=== PATIENT | female | born 1995 | race Caucasian/White ===

== ENCOUNTER 2022-02-05 10:17 | Emergency (ER) | payer OTHER ==
[~2022-02-05] VITALS: Ht 160 cm; Wt 56.7 kg
[2022-02-05] MEDS ORDERED: GADOTERATE MEGLUMINE 10 MMOL/20 ML VIAL IV ONE (10:18)
[2022-02-05] MEDS ORDERED: SERT50TA PO (10:36)
[2022-02-05] MEDS ORDERED: IV NORMAL SALINE 1000 ML BAG IV ONE (10:45)
[2022-02-05 10:57] LABS: *BILIRUBIN,URIN NEGATIVE (NEGATIVE); *BLOOD, URINE NEGATIVE (NEGATIVE); *COLOR,URINE YELLOW (YELLOW); *KETONES,URINE 3+ (NEGATIVE); *UROBILINOGEN,URINE 0.2 E.U./dl (NORMAL); LEUKOCYTE ESTERASE ,URINE NEGATIVE (NEGATIVE); NITRITE, URINE NEGATIVE (NEGATIVE); PH,URINE 7.5 (5.0-8.0); UGLUCOSE NEGATIVE (NEGATIVE)
[2022-02-05 11:00] LABS: HEMATOCRIT 37.9 % (31.2-41.9); MEAN CORPUSCULAR HEMOGLOBIN 30.2 uug (24.7-32.8); MEAN CORPUSCULAR VOLUME 87.7 fL (75.5-95.3); PLATELET COUNT (AUTO) 189 K/uL (179-408)
[2022-02-05] MEDS ORDERED: MORPHINE SULFATE 4 MG/1 ML DISP.SYRIN IV ONE (11:00)
[2022-02-05] MEDS ORDERED: ONDANSETRON 4 MG/2 ML VIAL IV ONE (11:00)
[2022-02-05 11:01] LABS: *CLARITY,URINE SLIGHTLY CLOUDY (CLEAR)
[2022-02-05 11:02] LABS: *URINE HCG, QUAL NEGATIVE (NEGATIVE)
[2022-02-05] MEDS ORDERED: ONDANSETRON 4 MG/2 ML VIAL ONE ×2 (11:05→11:08)
[2022-02-05] MEDS ORDERED: MORPHINE SULFATE 4 MG/1 ML DISP.SYRIN ONE (11:08)
[2022-02-05 11:09] LABS: CREATININE 0.9 mg/dL (0.6-1.3); POTASSIUM 3.8 mmol/L (3.5-5.1)
[2022-02-05] MEDS ORDERED: MORPHINE SULFATE 2 MG/1 ML DISP.SYRIN ONE (11:09)
[2022-02-05 11:15] LABS: TOTAL PROTEIN, SERUM 7.2 g/dL (6.4-8.2)
[2022-02-05 11:33] LABS: RBC,URINE 0-3 /HPF (0-3)
[2022-02-05 11:34] LABS: BACTERIA,URINE FEW /HPF (NONE SEEN); SQUAMOUS EPITHELIAL CELL,UR MODERATE /HPF (NONE SEEN); WBC,URINE 0-3 /HPF (0-3)
[2022-02-05] MEDS ORDERED: SWABABLE VALVE TRANSFER SET EA MC ONE (11:51)
[2022-02-05] MEDS ORDERED: IOHEXOL 300MG/ML 100 ML INFUS..BTL ONE (11:51)
[2022-02-05] MEDS ORDERED: IV NORMAL SALINE 250 ML IV ONE (11:51)
--- NOTE | 2022-02-05 14:16 | NUR ---
TEXT DR. MARINO FOR MRI APPROVAL.
--- NOTE | 2022-02-05 14:20 | NUR ---
Spoke with Joaquin at [facility]iology department regarding MRI. Stated he is waiting for approval and will call back with further information.
--- NOTE | 2022-02-05 14:30 | NUR ---
Received telephone call from Joaquin who stated pt has been approved for MRI. Called [facility] for transport, eta [id number].
--- NOTE | 2022-02-05 15:02 | NUR ---
Ambulance here to take pt to [facility] for MRI.
--- NOTE | 2022-02-05 16:34 | NUR ---
Pt back from [facility] noted.
--- NOTE | 2022-02-05 17:44 | NUR ---
Removed IV intact, site okay, bandaged. Gave pt d/c instructions, pt verbalized understanding.
[2022-02-05 17:46] VITALS: BP 104/59
[2022-02-10 16:05] LABS: *GC NAA NEGATIVE; *TRIC.VAG. NAA NEGATIVE
== END 2022-02-05 17:48 | disposition home or self-care (01) ==
LOC: ER 10:17
DX: R10.13 Epigastric pain (principal); N83.209 Unspecified ovarian cyst, unspecified side; Z97.5 Presence of (intrauterine) contraceptive device; F32.A Depression, unspecified; Z79.899 Other long term (current) drug therapy
CPT/HCPCS: 36415; 74177; 74183; 80053; 81001; 83690; 84703; 85025; 87491; 96361; 96374; 96375; 99285; A9575; J2270 ×2; J2405 ×2; Q9967; A4663; J7030; J7050